=== PATIENT | female | born 1970 | race Caucasian/White ===

== ENCOUNTER 2016-12-25 20:21 | Emergency (ER) | payer OTHER ==
[~2016-12-25] VITALS: Ht 160 cm; Wt 67.1 kg
[2016-12-25 20:25] VITALS: BP 110/67; PULSE 65; RESP 16; TEMP 98.1; O2SAT 100
[2016-12-25] MEDS ORDERED: DIPH-TET-PERTUS Vaccine 0.5 ML VIAL (ADACEL) I.M. ONE (21:00)
[2016-12-25] MEDS ORDERED: IBUPROFEN 800 MG TABLET PO ONE (21:00)
[2016-12-25] MEDS ORDERED: LIDOCAINE 1% 10 MG/ML, 20 ML MDV INJ ONE (21:00)
[2016-12-25] MEDS ORDERED: LIDOCAINE VISCOUS 2%, 15 ML UDC MM ONE (21:00)
[2016-12-25 22:15] VITALS: BP 115/62; PULSE 77; RESP 16; TEMP 98.1; O2SAT 100
== END 2016-12-25 22:15 | disposition home or self-care (01) ==
LOC: SED 20:21
DX: S61.411A Laceration without foreign body of right hand, initial encounter (principal); K80.80 Other cholelithiasis without obstruction; W25.XXXA Contact with sharp glass, initial encounter; Y93.89 Activity, other specified; Y92.89 Other specified places as the place of occurrence of the external cause; Y99.8 Other external cause status
CPT/HCPCS: 12002; 73130; 90471; 90715; 99284; J2001 ×2